=== PATIENT | male | born 1960 | race Caucasian/White ===

== ENCOUNTER 2017-04-09 15:44 | Emergency (ER) | payer MEDICAID, OTHER ==
[~2017-04-09] VITALS: Ht 165.1 cm; Wt 83.9 kg
--- NOTE | 2017-04-09 16:14 | NUR ---
57 YO MALE BB SELF. PATIENT IS A/O X 3, C/O SI WITH PLAN; WANTS TO HANG SELF. PATIENT AMBULATED TO ER BED, SKIN WARM AN DRY, RESP EVEN AND UNLABORED. AWAITING ORDERS FROM PROVIDER, WILL CONTINUE TO MONITOR
[2017-04-09 16:23] LABS: BASOPHILS # (AUTO) 0.1 /CMM (0.0-0.2); BASOPHILS % (AUTO) 1.2 % (0.0-2.0); EOSINOPHILS # (AUTO) 0.1 /CMM (0.0-0.7); EOSINOPHILS % (AUTO) 0.6 % (0.0-6.0); HEMATOCRIT 44 % (39-51); HEMOGLOBIN 15.6 g/dL (13.5-17.5); LYMPHOCYTES # (AUTO) 0.8 /CMM (0.8-4.8); LYMPHOCYTES % (AUTO) 9.2 % (20.0-44.0); MEAN CORPUSCULAR HEMOGLOBIN 32 PG (26.0-33.0); MEAN CORPUSCULAR HGB CONC 35 g/dl (31.0-36.0); MEAN CORPUSCULAR VOLUME 90 fL (80-96); MONOCYTES # (AUTO) 0.7 /CMM (0.1-1.30); MONOCYTES % (AUTO) 8.5 % (2.0-12.0); NEUTROPHILS # (AUTO) 6.8 /CMM (1.8-8.9); NEUTROPHILS % (AUTO) 80.5 % (43.0-81.0); PLATELET COUNT (AUTO) 186 /CMM (150-450); RDW COEFFICIENT OF VARIATION 11.7 (11.5-15.0); RED BLOOD CELL COUNT(AUTO) 4.95 MIL/uL (4.5-6.0); WHITE BLOOD COUNT (AUTO) 8.5 K/uL (4.3-11.0)
[2017-04-09 16:25] LABS: APPEARANCE,URINE Clear (CLEAR); BILIRUBIN,URINE Negative (NEGATIVE); BLOOD, URINE Negative Ery/uL (NEGATIVE); COLOR,URINE Yellow (YELLOW); KETONES,URINE Negative (NEGATIVE); LEUKOCYTE ESTERASE ,URINE Negative (NEGATIVE); NITRITE, URINE Negative (NEGATIVE); PH,URINE 6.5 (5.0-8.0); PROTEIN,URINE Negative (NEGATIVE); UGLUCOSE Negative (NEGATIVE); UROBILINOGEN,URINE 0.2 EU/dL (0.2)
[2017-04-09 16:30] LABS: CALCIUM, SERUM 9.2 mg/dL (8.5-10.1); CARBON DIOXIDE 28 mmol/L (21-32); CHLORIDE 93 mmol/L (98-107); CREATININE 0.9 mg/dL (0.6-1.3); GLUCOSE 117 mg/dL (74-106); SODIUM SERUM 125 mmol/L (136-145); UREA NITROGEN, BLOOD 8 mg/dL (7-18)
[2017-04-09 16:36] LABS: ALANINE AMINOTRANSFERASE 23 U/L (12-78); ALBUMIN 4.4 g/dL (3.4-5.0); ALKALINE PHOSPHATASE 78 U/L (46-116); ASPARTATE AMINOTRANSFERASE 27 U/L (15-37); BILIRUBIN,DIRECT 0.2 mg/dL (0.0-0.2); BILIRUBIN,TOTAL 1.8 mg/dL (0.2-1.0); TOTAL PROTEIN, SERUM 8.3 g/dL (6.4-8.2)
[2017-04-09 16:38] LABS: ACETAMINOPHEN < 10 ug/ml (10-30); ALCOHOL, BLOOD < 3 mg/dL (0-0); SALICYLATE < 2.8 mg/dL (2.8-20.0)
--- NOTE | 2017-04-09 17:04 | NUR ---
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
--- NOTE | 2017-04-09 17:43 | NUR ---
PINKY AT BED SIDE FOR PSYCH EVAL
--- NOTE | 2017-04-09 18:25 | NUR ---
GAVE PATIENT FOOD TRAY AND WATER
--- NOTE | 2017-04-09 19:06 | NUR ---
PATIENT IS RESTING IN ER BED, NO DISTRESS NOTED, WILL CONTINUE TO MONITOR
--- NOTE | 2017-04-09 20:10 | NUR ---
[facility]100 WAS GIVEN. TRIP [id number]
[2017-04-09 20:16] VITALS: BP 148/78
--- NOTE | 2017-04-09 21:15 | NUR ---
PATIENT AMBULATED TO ER RESTROOM WITH STEADY GAIT, NO DISTRESS NOTED, WILL CONTINUE TO MONITOR
--- NOTE | 2017-04-09 23:07 | NUR ---
report was given to EMT for transport
== END 2017-04-09 23:08 ==
LOC: ER 15:46
DX: R45.851 Suicidal ideations (principal); F32.9 Major depressive disorder, single episode, unspecified; F20.9 Schizophrenia, unspecified; F17.200 Nicotine dependence, unspecified, uncomplicated; Z88.8 Allergy status to other drugs, medicaments and biological substances
CPT/HCPCS: 36415; 80048; 80076; 80305; 80329; 81001; 85025; 99285; A4606; G0480 ×2; Z7610; 81000-TC

== ENCOUNTER 2018-09-05 19:14 | Emergency (ER) | payer MEDICAID ==
[~2018-09-05] VITALS: Ht 182.9 cm; Wt 83.9 kg
[2018-09-05 19:51] LABS: BASOPHILS % (AUTO) 0.5 % (0.0-2.0); EOSINOPHILS % (AUTO) 0.6 % (0.0-6.0); HEMATOCRIT 45 % (39-51); HEMOGLOBIN 15.3 g/dL (13.5-17.5); LYMPHOCYTES # (AUTO) 2.2 /CMM (0.8-4.8); LYMPHOCYTES % (AUTO) 27.2 % (20.0-44.0); MEAN CORPUSCULAR HGB CONC 34 g/dl (31.0-36.0); MEAN CORPUSCULAR VOLUME 90 fL (80-96); MONOCYTES # (AUTO) 0.5 /CMM (0.1-1.30); MONOCYTES % (AUTO) 6.3 % (2.0-12.0); NEUTROPHILS # (AUTO) 5.3 /CMM (1.8-8.9); NEUTROPHILS % (AUTO) 65.4 % (43.0-81.0); PLATELET COUNT (AUTO) 207 /CMM (150-450)
[2018-09-05 20:00] LABS: CALCIUM, SERUM 8.7 mg/dL (8.5-10.1); CARBON DIOXIDE 28 mmol/L (21-32); CHLORIDE 103 mmol/L (98-107); GLUCOSE 114 mg/dL (74-106); POTASSIUM 3.6 mmol/L (3.5-5.1); SODIUM SERUM 138 mmol/L (136-145); UREA NITROGEN, BLOOD 10 mg/dL (7-18)
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
--- NOTE | 2018-09-05 20:05 | NUR ---
PT IS NOT ABLE TO GIVE A URINE SAMPLE AT THIS TIME. PT STATED THAT HE ALREADY USED THE BATHROOM A LITTLE WHILE AGO. PT WAS GIVEN A SAMPLE CUP AND WAS ASKED TO GIVE A SAMPLE WHEN HE COULD. PT IS NOW WATCHING TV AND APPEARS TO BE RESTING COMFORTABLY.
[2018-09-05 20:16] LABS: ACETAMINOPHEN < 10 ug/ml (10-30); ALANINE AMINOTRANSFERASE 64 U/L (12-78); ALBUMIN 3.9 g/dL (3.4-5.0); ALCOHOL, BLOOD < 3 mg/dL (0-0); ALKALINE PHOSPHATASE 91 U/L (46-116); ASPARTATE AMINOTRANSFERASE 22 U/L (15-37); BILIRUBIN,DIRECT 0.2 mg/dL (0.0-0.2); BILIRUBIN,TOTAL 0.9 mg/dL (0.2-1.0); SALICYLATE 1.2 mg/dL (2.8-20.0); TOTAL PROTEIN, SERUM 7.8 g/dL (6.4-8.2)
[2018-09-05 20:48] LABS: APPEARANCE,URINE Clear (CLEAR); BILIRUBIN,URINE Negative (NEGATIVE); BLOOD, URINE Negative Ery/uL (NEGATIVE); COLOR,URINE Yellow (YELLOW); KETONES,URINE Negative (NEGATIVE); LEUKOCYTE ESTERASE ,URINE Negative (NEGATIVE); NITRITE, URINE Negative (NEGATIVE); PROTEIN,URINE Negative (NEGATIVE); UGLUCOSE Negative (NEGATIVE); UROBILINOGEN,URINE 0.2 EU/dL (0.2)
[2018-09-05] MEDS ORDERED: LORAZEPAM 1 MG TABLET PO ONE (21:00)
--- NOTE | 2018-09-05 21:00 | NUR ---
PT REC'D MEDICATION ORDERED. PT ALSO REC'D A SANDWICH, JELLO, AND JUICE. PT IS TOLERATING PO WELL.
[2018-09-05] MEDS ORDERED: LORAZEPAM 1 MG TABLET ONE (21:03)
--- NOTE | 2018-09-05 21:13 | NUR ---
SATHISH ROJOW PAGED.
--- NOTE | 2018-09-05 21:51 | NUR ---
QUINTON BOWER, ARRIVED AND IS REVIEWING THE PT'S CHART.
--- NOTE | 2018-09-05 21:54 | NUR ---
ALIA BOWERW, IS AT THE BEDSIDE.
--- NOTE | 2018-09-05 23:19 | NUR ---
PT APPEARS TO BE SLEEPING SOUNDLY WITH NO S/S OF PAIN OR DISTRESS. WILL CONTINUE TO MONITOR THE PT.
--- NOTE | 2018-09-05 23:20 | NUR ---
PT AMBULATED TO THE BATHROOM WITH A STEADY GAIT.
--- NOTE | 2018-09-05 23:29 | NUR ---
PT AMBULATED BACK TO ER #13. PT REQUESTED MILK AND REC'D IT UPON RETURN TO HIS BED.
--- NOTE | 2018-09-05 23:34 | NUR ---
CALLED INTAKE. NO UPDATES OF YET.
--- NOTE | 2018-09-06 01:18 | NUR ---
PT IS SLEEPING SOUNDLY, BUT IS EASILY AROUSED. PT WAS PLACED ON THE MONITOR AND CONTINUOUS PULSE OX.
--- NOTE | 2018-09-06 01:37 | NUR ---
[facility]. ACCEPTING MD DR ORTEGA. # FOR REPORT [phone]. HOUSE SUP REQUESTED THAT REPORT BE GIVEN IN APPROX 1 HR.
--- NOTE | 2018-09-06 02:00 | NUR ---
PT AMBULATED TO THE NURSE'S STATION WITH A STEADY GAIT AND WAS C/O BILATERAL EYE PAIN. PT HAS A RX FOR CIPRO EYE DROPS. DR JOE WAS NOTIFIED.
--- NOTE | 2018-09-06 02:05 | NUR ---
PT CAME TO THE NURSE'S STATION AGAIN RE: HIS EYE PAIN. PT WAS TOLD THAT THE DR WAS AWARE OF HIS PAIN AND HAS NOT PUT AN ORDER IN FOR THE PT'S EYE DROPS.
--- NOTE | 2018-09-06 02:06 | NUR ---
SPOKE TO DR JOE RE: PT'S EYE DROPS. DR JOE IS NOT AWARE OF THE CIPRO EYE DROPS BEING AVAILABLE IN THE ER. WILL CHECK THE PYXIS FOR DR JOE.
--- NOTE | 2018-09-06 02:10 | NUR ---
PT IS C/O EYE PAIN. PT WAS TOLD THAT WE ARE WAITING TO SEE WHAT THE DR IS ORDERING FOR THE PT'S EYES. PT WAS ASKED TO RETURN TO BED #13. PT AMBULATED BACK TO ER #13.
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
--- NOTE | 2018-09-06 02:20 | NUR ---
WE DO NOT HAVE CIPRO EYE DROPS IN THE ER. DR JOE IS AWARE. PT WAS NOTIFIED AND REQUESTED TO SPEAK TO THE .
--- NOTE | 2018-09-06 02:25 | NUR ---
REPORT GIVEN TO TORIE LUO FOR [facility]
--- NOTE | 2018-09-06 02:26 | NUR ---
AMBULN ETA: 0500. #[id number]
[2018-09-06 02:58] VITALS: BP 111/71
--- NOTE | 2018-09-06 02:59 | NUR ---
REPORT GIVEN TO GIANA VOGT.
== END 2018-09-06 05:31 | disposition short-term general hospital (02) ==
LOC: ER 19:17
DX: R45.851 Suicidal ideations (principal); F17.200 Nicotine dependence, unspecified, uncomplicated; Z98.890 Other specified postprocedural states; Z88.8 Allergy status to other drugs, medicaments and biological substances; Z60.2 Problems related to living alone
CPT/HCPCS: 36415; 80048; 80076; 80305; 80307; 80329; 81001; 85025; 99285; G0480; 81000-TC